=== PATIENT | male | born 1990 | race African-American/Black ===

== ENCOUNTER 2017-07-20 16:54 | Emergency (ER) | payer OTHER, BC ==
[2017-07-20 16:59] VITALS: BP 140/84
--- NOTE | 2017-07-20 17:15 | ER Document Report ---
ED Medical Screen (RME) - General Chief Complaint: Abdominal Pain Stated Complaint: ABDOMINAL PAIN Time Seen by Provider: 07/20/17 17:09 Notes: Patient is a 26-year-old male with a recurrent right lateral ventral hernia presents with increasing pain, nausea and now burning with urination. His provider at [facility] told him to go the ER when he begins to have the symptoms. PE: Tender right lateral ventral hernia. Normal bowel sounds. I have greeted and performed a rapid initial assessment of this patient. A comprehensive ED assessment and evaluation of the patient, analysis of test results and completion of the medical decision making process will be conducted by additional ED providers. TRAVEL OUTSIDE OF THE [place] IN LAST 30 DAYS: No - Related Data Allergies/Adverse Reactions: No Known Allergies Allergy (Verified 09/01/12 17:27) Past Medical History - Social History Chew tobacco use (# tins/day): No Frequency of alcohol use: None Drug Abuse: None Renal/ Medical History: Denies: Hx Peritoneal Dialysis Past Surgical History: Reports: Hx Orthopedic Surgery - L knee ACL replaced - Immunizations Hx Diphtheria, Pertussis, Tetanus Vaccination: Yes Physical Exam - Vital signs Vitals: Temp Pulse Resp BP Pulse Ox 98.3 F 68 14 140/84 H 100 07/20/17 16:58 07/20/17 16:58 07/20/17 16:58 07/20/17 16:58 07/20/17 16:58 Course - Vital Signs Vital signs: Temp Pulse Resp BP Pulse Ox 98.3 F 68 14 140/84 H 100 07/20/17 16:58 07/20/17 16:58 07/20/17 16:58 07/20/17 16:58 07/20/17 16:58
[2017-07-20 17:46] LABS: APPEARANCE,URINE CLEAR; BILIRUBIN,URINE NEGATIVE (NEGATIVE); COLOR,URINE YELLOW; GLUCOSE, URINE NEGATIVE (NEGATIVE); KETONES,URINE NEGATIVE (NEGATIVE); LEUKOCYTE ESTERASE,URINE NEGATIVE (NEGATIVE); NITRITE,URINE NEGATIVE (NEGATIVE); PROTEIN,URINE NEGATIVE (NEGATIVE); URINE SPECIFIC GRAVITY 1.019; UROBILINOGEN,URINE NEGATIVE mg/dL (<2.0)
--- NOTE | 2017-07-20 19:33 | ER Document Report ---
ED General - General Chief Complaint: Abdominal Pain Stated Complaint: ABDOMINAL PAIN Time Seen by Provider: 07/20/17 17:09 Notes: Patient is a 26-year-old male without past medical history, no prior surgical history who presents with several days of an area of his right mid abdomen that is painful. Patient states there is an area of swelling or a lump that showed up after he lifted a heavy object and has been present since that time. He notes that the area has a burning, throbbing, intermittent pain. States the pain is worsened by bearing down or standing up for prolonged periods of time. Is improved by lying flat. He denies any associated vomiting, continues to pass flatus and have bowel movements without difficulty. He has no history of similar symptoms in the past. He has seen his primary doctor regarding this concern. TRAVEL OUTSIDE OF THE [place] IN LAST 30 DAYS: No - Related Data Allergies/Adverse Reactions: No Known Allergies Allergy (Verified 09/01/12 17:27) Past Medical History - General Information source: Patient - Social History Smoking Status: Never Smoker Chew tobacco use (# tins/day): No Frequency of alcohol use: None Drug Abuse: None Lives with: Alone Family History: Reviewed & Not Pertinent Patient has suicidal ideation: No Patient has homicidal ideation: No Renal/ Medical History: Denies: Hx Peritoneal Dialysis Past Surgical History: Reports: Hx Orthopedic Surgery - L knee ACL replaced - Immunizations Hx Diphtheria, Pertussis, Tetanus Vaccination: Yes Review of Systems - Review of Systems Notes: Constitutional: Negative for fever. HENT: Negative for sore throat. Eyes: Negative for visual changes. Cardiovascular: Negative for chest pain. Respiratory: Negative for shortness of breath. Gastrointestinal: Positive for abdominal pain Genitourinary: Negative for dysuria. Musculoskeletal: Negative for back pain. Skin: Negative for rash. Neurological: Negative for headaches, weakness or numbness. 10 point ROS negative except as marked above and in HPI. Physical Exam - Vital signs Vitals: Temp Pulse Resp BP Pulse Ox 98.3 F 68 14 140/84 H 100 07/20/17 16:58 07/20/17 16:58 07/20/17 16:58 07/20/17 16:58 07/20/17 16:58 Interpretation: Normal Notes: PHYSICAL EXAMINATION: GENERAL: Well-appearing, well-nourished and in no acute distress. HEAD: Atraumatic, normocephalic. EYES: Pupils equal round and reactive to light, extraocular movements intact, sclera anicteric, conjunctiva are normal. ENT: nares patent, oropharynx clear without exudates. Moist mucous membranes. NECK: Normal range of motion, supple without lymphadenopathy LUNGS: Breath sounds clear to auscultation bilaterally and equal. No wheezes rales or rhonchi. HEART: Regular rate and rhythm without murmurs ABDOMEN: Soft, nontender, normoactive bowel sounds. No guarding, no rebound. There is a small apparent ventral hernia in the right mid abdomen that disappears when the patient lies flat. When he is standing and is soft, compressible easily reducible. EXTREMITIES: Normal range of motion, no pitting or edema. No cyanosis. NEUROLOGICAL: No focal neurological deficits. Moves all extremities spontaneously and on command. PSYCH: Normal mood, normal affect. SKIN: Warm, Dry, normal turgor, no rashes or lesions noted. Course - Re-evaluation Re-evalutation: 07/20/17 19:30 Patient presents with a very small hernia to the right middle abdomen which appears to be likely a fat containing hernia given the location. There is no evidence of incarceration or strength ablation as the hernia completely disappears and the patient lies in the supine position. When he stands he has to bear down quite forcefully to cause the area to reappear. I have advised the patient on conservative measures at this time, have placed a binder over the area to try to reduce the pain and frequency of the hernia reappearing and encouraged him to follow-up with surgery as an outpatient for consideration of surgical management. The remainder of his evaluation laboratories are unremarkable. And continues to pass flatus and have bowel movements regularly. I do not clinically suspect any life-threatening pathology at this time, small bowel obstruction, incarcerated or stranglated hernia. At this time will discharge with return precautions and follow-up recommendations. Verbal discharge instructions given a the bedside and opportunity for questions given. Medication warnings reviewed. Patient is in agreement with this plan and has verbalized understanding of return precautions and the need for primary care follow-up in the next 24-72 hours. - Vital Signs Vital signs: Temp Pulse Resp BP Pulse Ox 98.7 F 58 L 16 140/84 H 96 07/20/17 19:41 07/20/17 19:41 07/20/17 19:41 07/20/17 19:41 07/20/17 19:41 Discharge - Discharge Clinical Impression: Ventral hernia Qualifiers: Obstruction and gangrene presence: without obstruction or gangrene Qualified Code(s): K43.9 - Ventral hernia without obstruction or gangrene Condition: Good Disposition: HOME, SELF-CARE Additional Instructions: You may wear the abdominal binder as needed for discomfort. Please return if the area becomes extremely painful, you develop vomiting, the area will not go away when you lay flat or when you push on it, or you develop any other symptoms that are worrisome to you. Please follow-up in the surgery clinic regarding your hernia. Referrals: GAL SY MD [ACTIVE STAFF] - Follow up as needed
== END 2017-07-20 19:42 | disposition home or self-care (01) ==
LOC: ER 16:54
DX: K43.9 Ventral hernia without obstruction or gangrene (principal); R10.9 Unspecified abdominal pain; X50.0XXA Overexertion from strenuous movement or load, initial encounter
CPT/HCPCS: 81001; 99284

== ENCOUNTER 2018-12-18 10:53 | Emergency (ER) | payer BC, OTHER ==
[2018-12-18] MEDS ORDERED: DIPHENHYDRAMINE HCL 50 MG/ML VIAL IV ONE (11:32)
[2018-12-18] MEDS ORDERED: PROCHLORPERAZINE EDISYLATE INJ 10 MG/2 ML VIAL IV ONE (11:32)
--- NOTE | 2018-12-18 11:35 | ER Document Report ---
ED Medical Screen (RME) - General Chief Complaint: Headache Stated Complaint: HEADACHE Time Seen by Provider: 12/18/18 11:28 TRAVEL OUTSIDE OF THE [place] IN LAST 30 DAYS: No - HPI Notes: 12/18/18 11:33 Patient is a 28-year-old male with a history of hypertension who presents complaining of severe right frontal headache with some spots in his vision to his left eye that began suddenly at 930 this morning. Patient states that it started with a little change in the vision to the left eye and then he had a sudden pain at 930 which he describes as the worst headache of his life. Pain does not radiate. He did take Motrin just after the start of the headache with minimal relief. No history of headaches in the past no recent illness. He has associated nausea and generalized weakness, no focal weakness concerns. Denies any fever, head injury, neck pain/stiffness, changes in speech/mentation/hearing, URI, sore throat, chest pain, palpitations, syncope, cough, shortness of breath, wheeze, dyspnea, abdominal pain, vomiting/diarrhea, urinary retention, dysuria, hematuria, loss of control of bowel or bladder, numbness/tingling, saddle anesthesia, muscle paralysis/weakness, or rash. I have treated and performed a rapid initial assessment of this patient. A comprehensive ED assessment and evaluation of the patient, analysis of test results and completion of medical decision making process will be conducted by additional ED providers. PHYSICAL EXAMINATION: GENERAL: Well-appearing, well-nourished and in no acute distress. A&Ox4. Answers questions appropriately. HEAD: Atraumatic, normocephalic. Non-tender. EYES: Pupils equal round and reactive to light, extraocular movements intact, sclera anicteric, conjunctiva are normal. No nystagmus. ENT: Nares patent and without discharge. oropharynx clear without exudates. No tonsilar hypertrophy or erythema. Moist mucous membranes. NECK: Normal range of motion, supple without lymphadenopathy. No rigidity/meningismus. No midline tenderness. LUNGS: Breath sounds clear to auscultation bilaterally and equal. No wheezes rales or rhonchi. HEART: Regular rate and rhythm without murmurs, rubs, gallops. Musculoskeletal: Ext b/l: FROM to passive/active. Strength 5+/5. No deficits noted. No bony tenderness of extremities. Extremities: No cyanosis, clubbing, or edema b/l. Peripheral pulses 2+. Capillary refill less than 2 seconds. NEUROLOGICAL: NIH 0. GCS 15. Cranial nerves grossly intact. Normal speech, normal gait. Normal sensory, motor exams. Reflexes 2+ b/l. ALLYSON's negative. Pronator drift negative. Heel/rios, finger/nose wnl. Romberg neg. PSYCH: Normal mood, normal affect. SKIN: Warm, Dry, normal turgor, no rashes or lesions noted. - Related Data Allergies/Adverse Reactions: No Known Allergies Allergy (Verified 12/18/18 10:56) Past Medical History - Social History Chew tobacco use (# tins/day): No Frequency of alcohol use: None Drug Abuse: None Renal/ Medical History: Denies: Hx Peritoneal Dialysis Past Surgical History: Reports: Hx Orthopedic Surgery - L knee ACL replaced - Immunizations Hx Diphtheria, Pertussis, Tetanus Vaccination: Yes Physical Exam - Vital signs Vitals: Temp Pulse Resp BP Pulse Ox 98.1 F 75 15 149/72 H 100 12/18/18 11:04 12/18/18 11:04 12/18/18 11:04 12/18/18 11:04 12/18/18 11:04 Course - Vital Signs Vital signs: Temp Pulse Resp BP Pulse Ox 98.1 F 75 15 149/72 H 100 12/18/18 11:04 12/18/18 11:04 12/18/18 11:04 12/18/18 11:04 12/18/18 11:04
--- NOTE | 2018-12-18 12:24 | RADIOLOGY REPORT (SQ) ---
EXAM DESCRIPTION: CT HEAD WITHOUT COMPLETED DATE/TIME: 12/18/2018 12:09 pm REASON FOR STUDY: severe WHITLOCK COMPARISON: None. TECHNIQUE: Axial images acquired through the brain without intravenous contrast. Images reviewed wi th bone, brain and subdural windows. Additional sagittal and coronal reconstructions were generated. Images stored on PACS. All CT scanners at this facility use dose modulation, iterative reconstruction, and/or weight based d osing when appropriate to reduce radiation dose to as low as reasonably achievable (ALARA). [facility]: Dose Right [facility]: CareDose [facility]: Dose Right [facility]: Teradose 4D [facility]: [employer] RADIATION DOSE: CT Rad equipment meets quality standard of care and radiation dose reduction techniq ues were employed. CTDIvol: 53.2 mGy. DLP: 911 mGy-cm. mGy. LIMITATIONS: None. FINDINGS: VENTRICLES: Normal size and contour. CEREBRUM: No masses. No hemorrhage. No midline shift. No evidence for acute infarction. Normal gra y/white matter differentiation. No areas of low density in the white matter. CEREBELLUM: No masses. No hemorrhage. No alteration of density. No evidence for acute infarction. EXTRAAXIAL SPACES: No fluid collections. No masses. ORBITS AND GLOBE: No intra- or extraconal masses. Normal contour of globe without masses. CALVARIUM: No fracture. PARANASAL SINUSES: No fluid or mucosal thickening. SOFT TISSUES: No mass or hematoma. OTHER: No other significant finding. IMPRESSION: NORMAL BRAIN CT WITHOUT CONTRAST. EVIDENCE OF ACUTE STROKE: NO. COMMENT: Quality ID # [id number]: Final reports with documentation of one or more dose reduction techniques (e.g., Automated exposure control, adjustment of the mA and/or kV according to patient size, use of iterative reconstruction technique) TECHNICAL DOCUMENTATION: JOB ID: [id number] [employer]- All Rights Reserved Reading location - IP/workstation name: [email or web address]
--- NOTE | 2018-12-18 13:16 | ER Document Report ---
ED General - General Chief Complaint: Headache Stated Complaint: HEADACHE Time Seen by Provider: 12/18/18 11:28 Primary Care Provider: EDILMA HILLS MD [Primary Care Provider] - Follow up as needed Information source: Patient Notes: HPI: 28-year-old male who states that around 830 he developed some blurry vision to his left eye. He denies loss of vision. He states 1 hour later he developed a headache mostly to the right frontal region. He states it came on quickly. He denies any posterior headache or neck pain. No recent head trauma, vomiting, weakness or numbness. He states the blurry vision in the left eye resolved in 1 hour, around the time of the onset of the headache. No previous symptoms such as these. No recent new medications. ROS: See HPI All other review of systems reviewed and otherwise negative Reviewed vital signs and nursing note as charted by RN. PHYSICAL EXAM: CONSTITUTIONAL: Alert and oriented and responds appropriately to questions. Well-appearing; well-nourished HEAD: Normocephalic; atraumatic EYES: PERRL; sclera and conjunctiva is not injected. Full extraocular range of motion. No periorbital swelling ENT: Normal nose; no rhinorrhea; moist mucous membranes; pharynx without lesions noted NECK: Supple without meningismus; non-tender; no cervical lymphadenopathy, no masses CARD: Regular rate and rhythm; no murmurs; symmetric distal pulses RESP: Normal chest excursion without splinting or tachypnea; breath sounds clear and equal bilaterally SKIN: No acute lesions noted NEURO: CN 2-12 intact; 5/5 bilateral upper and lower extremity strength with sensation intact to light touch PSYCH: The patient's mood and manner are appropriate. Grooming and personal hygiene are appropriate. TRAVEL OUTSIDE OF THE [place] IN LAST 30 DAYS: No - Related Data Allergies/Adverse Reactions: No Known Allergies Allergy (Verified 12/18/18 10:56) Past Medical History - Social History Smoking Status: Never Smoker Chew tobacco use (# tins/day): No Frequency of alcohol use: None Drug Abuse: None Family History: Reviewed & Not Pertinent Patient has suicidal ideation: No Patient has homicidal ideation: No Renal/ Medical History: Denies: Hx Peritoneal Dialysis Past Surgical History: Reports: Hx Orthopedic Surgery - L knee ACL replaced - Immunizations Hx Diphtheria, Pertussis, Tetanus Vaccination: Yes Physical Exam - Vital signs Vitals: Temp Pulse Resp BP Pulse Ox 98.1 F 75 15 149/72 H 100 12/18/18 11:04 12/18/18 11:04 12/18/18 11:04 12/18/18 11:04 12/18/18 11:04 Course - Re-evaluation Re-evalutation: Given the above history and physical examination, with no past medical history except as recorded, with no fevers, neck pain, weakness or numbness, I do believe acute bacterial meningitis to be unlikely. Patient has no family history of connective tissue disorders, polycystic kidney disease, or cerebral aneurysms. Headache onset was around 2 hours prior to arrival. Sensitivity for subarachnoid hemorrhage should be almost 100% at this time on CT imaging. 12/18/18 13:16 CT as recorded. Patient denies any and all headache or neck pain. He also denies any and all blurry vision. Intraocular pressures are normal. Normal visual acuity exam. Given the above history and physical with imaging and repeat exam as recorded, I believe it is reasonable to discharge the patient home with strict return precautions and follow-up with ophthalmology. - Vital Signs Vital signs: Temp Pulse Resp BP Pulse Ox 98.1 F 75 15 149/72 H 100 12/18/18 11:04 12/18/18 11:04 12/18/18 11:04 12/18/18 11:04 12/18/18 11:04 Discharge - Discharge Clinical Impression: Blurry vision, left eye Headache Qualifiers: Headache type: unspecified Headache chronicity pattern: acute headache Intractability: not intractable Qualified Code(s): R51 - Headache Condition: Good Disposition: HOME, SELF-CARE Additional Instructions: Come back immediately for any return of blurry vision, weakness or numbness, headaches, fevers, vomiting, or any other acute problems. Please follow-up with the dining room attendant as we have provided. Referrals: EDILMA HILLS MD [Primary Care Provider] - Follow up as needed ELLIS KENDRICK MD [ACTIVE STAFF] - Follow up as needed
[2018-12-18 13:27] VITALS: BP 148/70
== END 2018-12-18 13:27 | disposition home or self-care (01) ==
LOC: ER 10:53
DX: H53.8 Other visual disturbances (principal); R51 Headache
CPT/HCPCS: 99283; 96374; 96375; 70450; J1200; J0780

== ENCOUNTER → 2019-05-12 | Outpatient (CLI) | payer BC, OTHER ==
--- NOTE | 2019-05-12 08:14 | RADIOLOGY REPORT (SQ) ---
EXAM DESCRIPTION: CHEST PA/LATERAL COMPLETED DATE/TIME: 05/12/2019 7:40 am REASON FOR STUDY: COUGH COMPARISON: 09/01/2012 EXAM PARAMETERS: NUMBER OF VIEWS: two views TECHNIQUE: Digital Frontal and Lateral radiographic views of the chest acquired. RADIATION DOSE: NA LIMITATIONS: none FINDINGS: LUNGS AND PLEURA: No opacities, masses or pneumothorax. No pleural effusion. MEDIASTINUM AND HILAR STRUCTURES: No masses or contour abnormalities. HEART AND VASCULAR STRUCTURES: Heart normal size. No evidence for failure. BONES: No acute findings. HARDWARE: None in the chest. OTHER: No other significant finding. IMPRESSION: NO SIGNIFICANT RADIOGRAPHIC FINDING IN THE CHEST. TECHNICAL DOCUMENTATION: JOB ID: [id number] [employer]- All Rights Reserved Reading location - IP/workstation name: [email or web address]
== END ==
LOC: OD 07:16
PROVIDERS: ATTEND Nurse Practitioner Family
DX: R05 Cough (principal)
CPT/HCPCS: 71046

== ENCOUNTER 2019-11-26 10:34 | Emergency (ER) | payer BC, OTHER ==
--- NOTE | 2019-11-26 11:48 | RADIOLOGY REPORT (SQ) ---
EXAM DESCRIPTION: CHEST SINGLE VIEW IMAGES COMPLETED DATE/TIME: 11/26/2019 10:27 am REASON FOR STUDY: chest heaviness COMPARISON: 05/12/2019 EXAM PARAMETERS: NUMBER OF VIEWS: One view. TECHNIQUE: Single frontal radiographic view of the chest acquired. RADIATION DOSE: NA LIMITATIONS: None. FINDINGS: LUNGS AND PLEURA: No opacities, masses or pneumothorax. No pleural effusion. MEDIASTINUM AND HILAR STRUCTURES: No masses. Contour normal. HEART AND VASCULAR STRUCTURES: Heart normal in size. Normal vasculature. BONES: No acute findings. HARDWARE: None in the chest. OTHER: No other significant finding. IMPRESSION: NO ACUTE RADIOGRAPHIC FINDING IN THE CHEST. TECHNICAL DOCUMENTATION: JOB ID: [id number] [employer]- All Rights Reserved Reading location - IP/workstation name: [email or web address]
[2019-11-26 11:59] LABS: APPEARANCE,URINE CLEAR; BILIRUBIN,URINE NEGATIVE (NEGATIVE); COLOR,URINE YELLOW; GLUCOSE, URINE NEGATIVE (NEGATIVE); KETONES,URINE NEGATIVE (NEGATIVE); LEUKOCYTE ESTERASE,URINE NEGATIVE (NEGATIVE); NITRITE,URINE NEGATIVE (NEGATIVE); PROTEIN,URINE NEGATIVE (NEGATIVE); URINE SPECIFIC GRAVITY 1.025; UROBILINOGEN,URINE NEGATIVE mg/dL (<2.0)
[2019-11-26 12:03] LABS: ABSOLUTE EOSINOPHILS # (AUTO) 0.2 10^3/uL (0.0-0.6); ABSOLUTE LYMPHOCYTES (AUTO) 1.9 10^3/uL (0.5-4.7); ABSOLUTE MONOCYTES (AUTO) 0.4 10^3/uL (0.1-1.4); ABSOLUTE NEUT (AUTO) 1.8 10^3/uL (1.7-8.2); BASOPHILS % (AUTO) 1.1 % (0-2); EOSINOPHILS % (AUTO) 5.3 % (0-6); HEMATOCRIT 46.6 % (37.9-51.0); HEMOGLOBIN 16.3 g/dL (13.5-17.0); LYMPHOCYTES % (AUTO) 42.6 % (13-45); MEAN CORPUSCULAR HEMOGLOBIN 30.5 pg (27.0-33.4); MEAN CORPUSCULAR HGB CONC 35.1 g/dL (32.0-36.0); MEAN CORPUSCULAR VOLUME 87 fl (80-97); MONOCYTES % (AUTO) 9.3 % (3-13); PLATELET COUNT 282 10^3/uL (150-450); RED BLOOD COUNT 5.36 10^6/uL (4.35-5.55); RED CELL DISTRIBUTION WIDTH 12.5 % (11.5-14.0); SEGMENTED NEUTROPHILS % (AUTO) 41.7 % (42-78); TOTAL CELLS COUNTED % (AUTO) 100 %; WHITE BLOOD COUNT 4.4 10^3/uL (4.0-10.5)
[2019-11-26] MEDS ORDERED: ONDANSETRON HCL INJ/PF 4 MG/2 ML SDV IV ONE (12:38)
[2019-11-26] MEDS ORDERED: NORMAL SALINE 1000 ML 1,000 ML IV ONE (12:38)
--- NOTE | 2019-11-26 12:40 | ER Document Report ---
ED GI/ - General Chief Complaint: Abdominal Pain Stated Complaint: ABDOMINAL PAIN/HEADACHE/VOMITING/DIZZY Time Seen by Provider: 11/26/19 11:29 Primary Care Provider: MORALES CAMPBELL FNP [NO LOCAL MD] - Follow up as needed Notes: Patient is a 28-year-old male with a history of hypertension who presents in the emergency department with a chief complaint of nausea, vomiting, shortness of breath, and generally not feeling well. Patient states that his symptoms started a few days ago. Denies any actual abdominal pain. Patient states that he has been taking his medications as prescribed. TRAVEL OUTSIDE OF THE [place] IN LAST 30 DAYS: No - Related Data Allergies/Adverse Reactions: No Known Allergies Allergy (Verified 11/26/19 11:17) Past Medical History - Social History Smoking Status: Never Smoker Frequency of alcohol use: None Drug Abuse: None Family History: Reviewed & Not Pertinent Patient has homicidal ideation: No - Past Medical History Cardiac Medical History: Reports: Hx Hypertension Renal/ Medical History: Denies: Hx Peritoneal Dialysis Past Surgical History: Reports: Hx Orthopedic Surgery - L knee ACL replaced - Immunizations Hx Diphtheria, Pertussis, Tetanus Vaccination: Yes Review of Systems - Review of Systems Notes: REVIEW OF SYSTEMS: CONSTITUTIONAL : Denies recent illness. Denies recent unintentional weight loss. Denies fever, chills, or sweats. EENT: Denies eye, ear, throat, or mouth pain, discharge, or symptoms. Denies nasal or sinus congestion. CARDIOVASCULAR: Denies chest pain. RESPIRATORY: See HPI. GASTROINTESTINAL: See HPI. GENITOURINARY: Denies difficulty urinating, burning, blood in urine, urgency or frequency. MUSCULOSKELETAL: Denies neck and back pain. Denies joint pain or swelling. SKIN: Denies rash, itchiness, or lesions HEMATOLOGIC : Denies easy bruising or bleeding. LYMPHATIC: Denies swollen, painful, enlarged glands. NEUROLOGICAL: Denies no numbness or tingling denies weakness. Denies headache. Denies altered mental status. Denies alteration in speech. PSYCHIATRIC: Denies stress, anxiety, alteration in sleep patterns, or depression. All other systems reviewed and negative. Physical Exam - Vital signs Vitals: Temp Pulse Resp BP Pulse Ox 98.7 F 64 16 149/81 H 100 11/26/19 10:56 11/26/19 10:56 11/26/19 10:56 11/26/19 10:56 11/26/19 10:56 - Notes Notes: PHYSICAL EXAMINATION: GENERAL: Appears well, healthy, well-nourished, no acute distress. HEAD: Normocephalic, atraumatic. EYES: PERRL, conjunctiva normal, all extraocular movements intact, sclera martinez cteric ENT: Moist mucous membranes. NECK: Supple, no noticeable swelling, redness, rash. Normal range of motion. LUNGS: Equal breath sounds bilaterally and clear to auscultation. No wheezes rales or rhonchi. CARDIOVASCULAR: S1-S2, regular rate, regular rhythm. Radial pulses 2+, normal. ABDOMEN: Normoactive bowel sounds. Soft, nontender, no guarding, no rebound tenderness, and no masses palpated. EXTREMITIES: Normal strength and range of motion, no pitting or edema. No cyanosis. NEUROLOGICAL: Moves all extremities upon command. Strength 5/5 in all extremities. PSYCH: Normal mood, normal affect. SKIN: Warm, dry. No rash, lesions, ulcerations noted. Normal skin turgor. Course - Re-evaluation Re-evalutation: 11/26/19 15:30 Hematology is unremarkable. Chemistries show a total bilirubin of 2.3, but the patient is not tender in that area. Have a low suspicion for any biliary pathology. Lipase is unremarkable. Chemistries are grossly unremarkable, other than a sodium of 136.8, which patient received a liter of IV fluids. Urinalysis is unremarkable. Patient states that he still has a headache. I told him that we will test him for COVID-19, as that this is a possibility for his symptoms. Follow-up precautions were given. Verbal discharge instructions were given to the patient. They verbalized understanding. They are stable for discharge. - Vital Signs Vital signs: Temp Pulse Resp BP Pulse Ox 98.7 F 64 16 149/81 H 100 11/26/19 11:00 11/26/19 10:56 11/26/19 10:56 11/26/19 10:56 11/26/19 10:56 - Laboratory Result Diagrams: 11/26/19 11:30 11/26/19 13:15 Laboratory results interpreted by me: 11/26/19 11/26/19 11/26/19 11:30 11:30 13:15 Seg Neutrophils % 41.7 L Sodium 136.8 L Total Bilirubin 2.3 H Urine Ascorbic Acid 40 H - EKG Interpretation by Me Additional EKG results interpreted by me: 11/26/19 15:36 Sinus rhythm. Rate 60. WA 152; QRS 82; QT 380; QTc 380. No ST elevations or depressions noted. Discharge - Discharge Clinical Impression: Nausea Headache Qualifiers: Headache type: unspecified Headache chronicity pattern: unspecified pattern Intractability: not intractable Qualified Code(s): R51 - Headache Condition: Stable Disposition: HOME, SELF-CARE Instructions: COVID-19 Guidance for Persons Under Investigation Additional Instructions: You were seen today in the emergency department for nausea, headache, and generally not feeling well. You are being tested for COVID-19. The health department will call you with your results. Please self isolate at home until your results are back. If your results are positive, please stay at home for 2 weeks. Referrals: MORALES CAMPBELL FNP [NO LOCAL MD] - Follow up as needed
[2019-11-26 13:44] LABS: ALBUMIN 4.1 g/dL (3.5-5.0); ALKALINE PHOSPHATASE 62 U/L (38-126); ANION GAP 8 (5-19); ASPARTATE AMINO TRANSFERASE 25 U/L (17-59); BILIRUBIN,DIRECT 0.1 mg/dL (0.0-0.4); BILIRUBIN,TOTAL 2.3 mg/dL (0.2-1.3); BLOOD UREA NITROGEN 12 mg/dL (7-20); CALCIUM 8.6 mg/dL (8.4-10.2); CARBON DIOXIDE 24 mmol/L (22-30); CHLORIDE 105 mmol/L (98-107); GLUCOSE 89 mg/dL (75-110); POTASSIUM 4.2 mmol/L (3.6-5.0); TOTAL PROTEIN 6.7 g/dL (6.3-8.2)
[2019-11-26 15:54] VITALS: BP 130/67
--- NOTE | 2019-11-26 20:27 | EKG REPORT ---
SEVERITY:- NORMAL ECG - SINUS RHYTHM : Confirmed by: Tamela Peters 26-Nov-2019 20:26:46
== END 2019-11-26 15:54 | disposition home or self-care (01) ==
LOC: ER 10:34
DX: R11.2 Nausea with vomiting, unspecified (principal); R06.02 Shortness of breath; R51 Headache; I10 Essential (primary) hypertension; Z20.828 Contact with and (suspected) exposure to other viral communicable diseases
CPT/HCPCS: 93005; 99285; 96361; 96374; 36415; 83690; 85025; 80053; 81001; 71045; 93010; U0003; J2405; J7030; C9803; 87635